=== PATIENT | female | born 1990 | race Caucasian/White ===

== ENCOUNTER 2023-12-15 09:25 | Emergency (ER) | payer OTHER ==
[2023-12-15 09:49] VITALS: BP 133/99; O2SAT 99
--- NOTE | 2023-12-15 10:12 | ED Physician Documentation ---
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 She tested positive for covid this morning. Her spouse has had the same sx, but has tested negative. No other complaints at this time. PD PAST MEDICAL HISTORY - Past Medical History Past Medical History: Yes Cardiovascular: None Respiratory: None Neuro: None Endocrine/Autoimmune: None GI: None VOCATIONAL EDUCATION PROFESSIONAL: None : None HEENT: None Psych: None Musculoskeletal: Chronic back pain Derm: None - Past Surgical History Past Surgical History: No - Present Medications Home Medications: Ambulatory Orders Medication Instructions Recorded Confirmed No Known Home Medications 12/15/23 12/15/23 - Allergies Allergies/Adverse Reactions: Allergies Allergy/AdvReac Type Severity Reaction Status Date / Time No Known Drug Allergies Allergy Verified 12/15/23 09:31 - Social History Does the pt smoke?: No Smoking Status: Never smoker Does the pt drink ETOH?: Yes Does the pt have substance abuse?: No - Immunizations Immunizations are current?: Yes - POLST Patient has POLST: No PD ED PE NORMAL - Vitals Vital signs reviewed: Yes - General General: Alert and oriented X 3, No acute distress - HEENT HEENT: Atraumatic, EOMI, Moist mucous membranes - Neck Neck: Supple, no meningeal sign - Cardiac Cardiac: RRR, No murmur - Respiratory Respiratory: No respiratory distress, Clear bilaterally - Abdomen Abdomen: Soft, Non tender, Non distended - Derm Derm: Normal color, Warm and dry, No rash - Extremities Extremities: No deformity - Neuro Neuro: Alert and oriented X 3 - Psych Psych: Normal mood, Normal affect Results - Vitals Vitals: Oxygen O2 Source Room air PD Medical Decision Making - ED course Complexity details: considered differential, d/w patient ED course: I d/w pt symptomatic management of covid, and the self-limited nature of this illness. We have discussed indications for follow-up and return. Departure - Departure Disposition: 01 Home, Self Care Clinical Impression: COVID Condition: Stable Instructions: ED Viral Syndrome Comments: For the most part, COVID is like any other viral illness and that it has to pass on its own with the help of your body's immune system. Most cases of COVID these days are not life-threatening and just cause some temporary discomfort. You may take [id number] medication to help with your symptoms. Please also be sure to drink plenty of fluids and get plenty of rest. Work note has been provided so that you can recuperate at home. In general, the illness last anywhere from a few days to couple of weeks. When she were noticeably improving, you may return to work. Forms: PCP List, Activity restrictions Discharge Date/Time: 12/15/23 10:30
== END 2023-12-15 10:30 | disposition home or self-care (01) ==
LOC: ED 09:25
DX: U07.1 COVID-19 (principal)
CPT/HCPCS: 99281; 99283